=== PATIENT | female | born 1990 ===

== ENCOUNTER 2019-01-03 15:46 | Emergency (ER) | payer SELFPAY | END 2019-01-03 17:20 | disposition home or self-care (01) | LOC: ERS 15:46 | DX: O9A.213 Injury, poisoning and certain other consequences of external causes complicating pregnancy, third trimester (principal); S00.81XA Abrasion of other part of head, initial encounter; O99.342 Other mental disorders complicating pregnancy, second trimester; F43.10 Post-traumatic stress disorder, unspecified; F41.9 Anxiety disorder, unspecified; Z3A.25 25 weeks gestation of pregnancy | CPT/HCPCS: 99283 ==